=== PATIENT | male | born 1960 | race African-American/Black ===

== ENCOUNTER 2017-06-23 07:12 | Emergency (ER) | payer MEDICAID, OTHER ==
[~2017-06-23] VITALS: Ht 180.3 cm; Wt 91.0 kg
[2017-06-23] MEDS ORDERED: ACETAMINOPHEN 325MG TABLET PO ONE (07:45)
[2017-06-23] MEDS ORDERED: MORPHINE SULFATE 4 MG/ML CPJ (NOT FOR IM USE) IV ONE (09:15)
[2017-06-23] MEDS ORDERED: ETOMIDATE 2MG/ML 10ML VIAL IV ONE (09:15)
[2017-06-23 11:46] VITALS: BP 122/61
[2017-06-23 12:30] LABS: *AMPHETAMINES SCREEN URINE NEGATIVE (NEGATIVE); *BARBITURATES SCREEN URINE NEGATIVE (NEGATIVE); *BENZODIAZEPINES SCREEN URINE NEGATIVE (NEGATIVE); *COCAINE SCREEN URINE NEGATIVE (NEGATIVE); METHADONE URINE SCREEN NEGATIVE (NEGATIVE); OPIATES URINE SCREEN PRESUMTIVE POSITIVE (NEGATIVE)
[2017-06-23 12:31] LABS: CANNABINOID URINE SCREEN NEGATIVE (NEGATIVE); PHENCYCLIDINE URINE SCREEN PRESUMTIVE POSITIVE (NEGATIVE)
== END 2017-06-23 11:57 | disposition home or self-care (01) ==
LOC: ER 07:29
DX: S43.004A Unspecified dislocation of right shoulder joint, initial encounter (principal); X58.XXXA Exposure to other specified factors, initial encounter; Y93.89 Activity, other specified; Y92.89 Other specified places as the place of occurrence of the external cause; Y99.8 Other external cause status
CPT/HCPCS: 23650; 73030; 80305; 82962; 99152; 99285; J2270; J3490; 81025; 96372; 99283; L3670